=== PATIENT | female | born 1970 | race African-American/Black ===

== ENCOUNTER 2016-11-04 08:22 | Day surgery (SDC) | payer BC ==
[~2016-11-04 08:22] MED LIST: HYDROCHLOROTHIA25 M1 PO; NORVASC10 M2 PO
[2016-11-05] MEDS ORDERED: PERCOCET 5-3251 EACH PO (02:10)
== END 2016-11-05 10:10 ==
LOC: SHSB 08:22 → ORW 10:28 → PACU 12:07 → OBGF 13:20
PROC: 0UT94ZZ Resection of Uterus, Percutaneous Endoscopic Approach (ICD-10-PCS; principal; 2016-11-04)
PROC: 0UTC4ZZ Resection of Cervix, Percutaneous Endoscopic Approach (ICD-10-PCS; principal; 2016-11-04)
PROC: 0UB74ZZ Excision of Bilateral Fallopian Tubes, Percutaneous Endoscopic Approach (ICD-10-PCS; principal; 2016-11-04)
DX: D25.2 Subserosal leiomyoma of uterus (principal); I10 Essential (primary) hypertension; Z90.49 Acquired absence of other specified parts of digestive tract; Z98.51 Tubal ligation status; Z79.899 Other long term (current) drug therapy
CPT/HCPCS: J0690; J1170; J7030